=== PATIENT | female | born 1985 | race American Indian/Alaskan Native ===

== ENCOUNTER 2018-11-29 18:05 | Emergency (ER) | payer SELFPAY ==
[2018-11-29 18:35] VITALS: BP 134/77
--- NOTE | 2018-11-29 18:36 | Emergency Department Report ---
Chief Complaint: Dental/Oral Stated Complaint: TOOTHACHE Time Seen by Provider: 11/29/18 18:33 - HPI History of Present Illness: pt presents with left upper dental pain that began 2 weeks ago states she last saw a dentist 4 months ago no fever no facial swelling took tylenol without much relief no PMHx on exam: several dental fillings appears that one of the fillings has partially fallen out on the left upper side no dental abscess no edema or erythema of the gums no facial edema uvula is midline, no uvular edema vitals are stable no signs of dental abscess, no signs of peritonsillar abscess, no signs of facial cellulitis, no signs of dental infection advised pt may take tylenol or ibuprofen for discomfort. follow up with a dentist in the next 3-5 days. return to the emergency room for any new symptoms. pt given list of community [facility] clinics no medical emergency at this time MSE complete MSE screening note: Focused history and physical exam performed. ED Disposition for MSE Clinical Impression: Toothache, Dental caries Disposition: MED SCREENING EXAM-LEFT Is pt being admited?: No Does the pt Need Aspirin: No Condition: Stable Instructions: Dental Caries (ED), Toothache (ED) Additional Instructions: may take tylenol or ibuprofen for discomfort. follow up with a dentist in the next 3-5 days. return to the emergency room for any new symptoms. Referrals: [facility] [Outside] - 3-5 Days Time of Disposition: 18:35 Print Language: BELIZEAN
== END 2018-11-29 18:41 | disposition left against medical advice (07) ==
LOC: ED 18:05
DX: K02.9 Dental caries, unspecified (principal); Z88.1 Allergy status to other antibiotic agents
CPT/HCPCS: 99282